=== PATIENT | male | born 1965 | race Caucasian/White ===

== ENCOUNTER → 2022-08-25 | Outpatient (CLI) | payer MEDICAID | LOC: COL.RAD 10:59 | DX: M54.41 Lumbago with sciatica, right side (principal); M54.42 Lumbago with sciatica, left side; R20.0 Anesthesia of skin; M54.12 Radiculopathy, cervical region; G62.9 Polyneuropathy, unspecified; G89.29 Other chronic pain; R09.89 Other specified symptoms and signs involving the circulatory and respiratory systems ==